=== PATIENT | female | born 1960 | race Hispanic/Latino ===

== ENCOUNTER 2020-05-18 15:03 | Emergency (ER) | payer OTHER, SELFPAY ==
[2020-05-19 02:00] LABS: SARS-CoV-2 MS2 Positive; SARS-CoV-2 N Gene Positive; SARS-CoV-2 S Gene Positive; SARS-CoV-2 by NAA DETECTED (NotDetected); SARS-CoV-2 orf1ab Positive
== END 2020-05-18 15:22 | disposition home or self-care (01) ==
LOC: ERS 15:03
DX: U07.1 COVID-19 (principal)
CPT/HCPCS: 87635; 99283; U0003

== ENCOUNTER 2020-05-26 19:53 | Emergency (ER) | payer SELFPAY ==
[2020-05-26] MEDS ORDERED: Ibuprofen 200 MG TAB ONE (21:11)
--- NOTE | 2020-05-26 21:42 | RAD ---
RADIOGRAPH CHEST 1 VIEW: DATE: 05/26/2020 TIME: 9:24 PM HISTORY: 59-year-old female with cough and fever COMPARISON: none FINDINGS: Right lateral upper-mid lung zone patchy infiltrate. Infiltrate at right medial base. Cardiomediastinal silhouette is normal. No pneumothorax. No effacement of lateral costophrenic angles. Developmental deformity of left third rib, which is diffusely thin. IMPRESSION: Right upper lobe and right lower lobe infiltrates: Right-sided pneumonia
== END 2020-05-26 22:39 | disposition home or self-care (01) ==
LOC: ERS 19:53
DX: U07.1 COVID-19 (principal); J12.89 Other viral pneumonia
CPT/HCPCS: 71045